=== PATIENT | male | born 1970 | race Caucasian/White ===

== ENCOUNTER 2016-11-16 15:04 | Emergency (ER) | payer MEDICAID ==
[~2016-11-16] VITALS: Ht 185.4 cm; Wt 114.7 kg
[2016-11-16] MEDS ORDERED: ASEN10TA10 SL (15:30)
[2016-11-16] MEDS ORDERED: CITA40TA5 PO (15:30)
[2016-11-16] MEDS ORDERED: ASEN5TAB8 SL (15:30)
[2016-11-16] MEDS ORDERED: CLON0.5T3 PO (15:30)
[2016-11-16] MEDS ORDERED: LTH300C PO (15:30)
[2016-11-16] MEDS ORDERED: CLIN-79 PO (16:05)
[2016-11-16 16:08] VITALS: BP 149/88
== END 2016-11-16 16:20 | disposition home or self-care (01) ==
LOC: EDUNIT# 15:07 → ED 15:07
DX: L03.011 Cellulitis of right finger (principal)
CPT/HCPCS: 10060; 87070; 87147; 87186; 99283